=== PATIENT | male | born 2000 | race Caucasian/White ===

== ENCOUNTER 2020-10-26 14:30 | Emergency (ER) | payer BC ==
[~2020-10-26] VITALS: Ht 188 cm; Wt 111.4 kg
[2020-10-26 14:42] VITALS: TEMP 97.7
[2020-10-26] MEDS ORDERED: NORCO 325 MG-51 TAB PO (16:22)
[2020-10-26 17:14] VITALS: BP 131/80; PULSE 80
== END 2020-10-26 17:15 | disposition home or self-care (01) ==
LOC: COL.ER 14:30
DX: S62.356A Nondisplaced fracture of shaft of fifth metacarpal bone, right hand, initial encounter for closed fracture (principal); W01.0XXA Fall on same level from slipping, tripping and stumbling without subsequent striking against object, initial encounter